=== PATIENT | male | born 1965 | race Caucasian/White ===

== ENCOUNTER 2017-03-24 19:15 | Emergency (ER) | payer BC ==
[2017-03-24 19:23] VITALS: BP 148/86
--- NOTE | 2017-03-24 19:38 | UC ---
Dental HPI - HPI Summary HPI Summary: Pt reports that he was at his dentist this morning for a fractured tooth and was told to worm picker antibiotics for the "infected tooth" Pt went to worm picker antibiotic at pharmacy and it was not sent it. - History of Current Complaint Hx Obtained From: Patient Onset/Duration: Sudden Onset, Lasting Days, Still Present Severity: Mild Aggravating: Heat, Cold, Chewing Related History: Previous Dental Care on Same Tooth, Other - fractured tooth <Camilla Lopez NP - Last Filed: 03/24/17 19:40> <Magda Hairston - Last Filed: 03/24/17 20:05> - History of Current Complaint Chief Complaint: UCDentalProblem Stated Complaint: DENTAL PAIN Time Seen by Provider: 03/24/17 19:23 - Allergies/Home Medications Allergies/Adverse Reactions: Allergies Allergy/AdvReac Type Severity Reaction Status Date / Time Penicillins Allergy Rash And Verified 03/24/17 19:23 Itching Home Medications: Home Medications Fenofibrate 40 mg PO DAILY 03/24/17 [History Confirmed 03/24/17] Lisinopril TAB* [Prinivil TAB 10 MG*] 10 mg PO DAILY 03/24/17 [History Confirmed 03/24/17] metFORMIN* [Glucophage 500 MG TAB *] 750 mg PO DAILY 03/24/17 [History Confirmed 03/24/17] PMH/Surg Hx/FS Hx/Imm Hx Previously Healthy: Yes - Surgical History Surgery Procedure, Year, and Place: bone spur. mcl 10 years - Family History Known Family History: Positive: Hypertension - Social History Occupation: Employed Full-time Lives: With Family Alcohol Use: None Substance Use Type: None Smoking Status (MU): Never Smoked Tobacco Have You Smoked in the Last Year: No <Camilla Lopez NP - Last Filed: 03/24/17 19:40> Review of Systems Constitutional: Negative Skin: Negative Eyes: Negative ENT: Dental Pain - fractured tooth Respiratory: Negative Cardiovascular: Negative Gastrointestinal: Negative Genitourinary: Negative Motor: Negative Neurovascular: Negative Musculoskeletal: Negative Neurological: Negative Psychological: Negative All Other Systems Reviewed And Are Negative: Yes <Camilla Lopez NP - Last Filed: 03/24/17 19:40> Physical Exam Triage Information Reviewed: Yes Appearance: Well-Appearing Vital Signs: Initial Vital Signs Temp 98.3 F 03/24/17 19:19 Pulse 66 03/24/17 19:19 Resp 14 03/24/17 19:19 BP 148/86 03/24/17 19:19 Pulse Ox 98 03/24/17 19:19 Vital Signs Reviewed: Yes Eye Exam: Normal ENT Exam: Normal Dental Exam: Other Dental: Positive: Dental Fracture @ - left premolar Neck exam: Normal Neck: Positive: Supple Respiratory Exam: Other Respiratory: Positive: No respiratory distress Musculoskeletal Exam: Normal Neurological Exam: Normal Psychological Exam: Normal Skin Exam: Normal <Camilla Lopez NP - Last Filed: 03/24/17 19:40> Vital Signs: Initial Vital Signs Temp 98.3 F 03/24/17 19:19 Pulse 66 03/24/17 19:19 Resp 14 03/24/17 19:19 BP 148/86 03/24/17 19:19 Pulse Ox 98 03/24/17 19:19 <Magda Hairston - Last Filed: 03/24/17 20:05> Dental Complaint Course/Dx - Differential Dx/Diagnosis Differential Diagnosis/Dx: Fractured Tooth Provider Diagnoses: fractured tooth <Camilla Lopez NP - Last Filed: 03/24/17 19:40> Discharge <Camilla Lopez NP - Last Filed: 03/24/17 19:40> <Magda Hairston - Last Filed: 03/24/17 20:05> - Discharge Plan Condition: Stable Disposition: HOME Prescriptions: Clindamycin Cap(NF) [Clindamycin Cap 300 mg Cap(NF)] 300 mg PO Q8H #30 cap Patient Education Materials: Acute Dental Trauma (ED) Referrals: Silvia Mahan MD [Medical Doctor] - Attestation Statement User Type: Provider - I was available for consult. This patient was seen by the CHRISTY. The patient was not presented to, seen by, or examined by me. -Ronen <Magda Hairston - Last Filed: 03/24/17 20:05>
== END 2017-03-24 19:43 | disposition home or self-care (01) ==
LOC: UCCORT 19:15
DX: S02.5XXA Fracture of tooth (traumatic), initial encounter for closed fracture (principal); X58.XXXA Exposure to other specified factors, initial encounter; Y93.9 Activity, unspecified; Y92.9 Unspecified place or not applicable; Z88.0 Allergy status to penicillin
CPT/HCPCS: 99212; G0463

== ENCOUNTER 2019-11-20 18:10 | Emergency (ER) | payer BC ==
--- OUTSIDE RECORDS SUMMARY | 2019-11-20 18:30 | XMS REPORT | Continuity of Care Document ---
:1965 External Reference #:[id number] Author Name Infusion Chair 7 (transmitted by agent of provider Gwen Dean) Address [address], [address] [place] [address] Care Team Providers Name Role Phone Zhou Gilliam - Urology Care Team Information Travel Coordinator [phone] Patricio Loredo MD - Family Medicine Care Team Information Travel Coordinator Problems Active Problems Provider Date Localized, primary osteoarthritis Gregory De La Rosa MD, FACS Onset: 2010 Essential hypertension Ingrid Judd M.D. Onset: 03/01/2017 Proteinuria Ingrid Judd M.D. Onset: 03/01/2017 Note: on FAVIOLA Sarcoidosis Ingrid Judd M.D. Onset: 03/01/2017 Hypertriglyceridemia Ingrid Judd M.D. Onset: 03/01/2017 Type 2 diabetes mellitus Ingrid Judd M.D. Onset: 03/01/2017 Noncompliance with treatment Ingrid Judd M.D. Onset: 03/01/2017 Obstructive sleep apnea of adult Ingrid Judd M.D. Onset: 03/01/2017 Splenomegaly Ingrid Judd M.D. Onset: 04/12/2017 History of polyp of colon Gurinder Miller MD Onset: 10/11/2017 Mixed hyperlipidemia Ingrid Judd M.D. Onset: 09/27/2017 Obesity Ingrid Judd M.D. Onset: 09/27/2017 Screening for malignant neoplasm of colon Ingrid Judd M.D. Onset: 2017 Hereditary hemochromatosis Ingrid Judd M.D. Onset: 12/27/2017 Vitamin D deficiency Ingrid Judd M.D. Onset: 12/27/2017 Chronic nonalcoholic liver disease Gurinder Miller MD Onset: 04/04/2018 Benign neoplasm of colon Gurinder Miller MD Onset: 04/04/2018 Diverticular disease of colon Gurinder Miller MD Onset: 04/04/2018 First degree hemorrhoids Gurinder Miller MD Onset: 04/04/2018 Abnormal findings diagnostic imaging of Gurinder Miller MD Onset: 04/04/2018 liver+biliary tract Streptococcal sore throat Krupa Archuleta DO Onset: 11/06/2018 Vitamin B deficiency Krupa Archuleta DO Onset: 02/18/2019 Acute upper respiratory infection, unspecified Krupa Archuleta DO Onset: Social History Type Date Description Comments Sex Unknown Cigarette Use Denies Smokeless Tobacco Never Used Smokeless Tobacco ETOH Use Rarely consumes alcohol Recreational Drug Use Denies Drug Use Tobacco Use Start: Unknown Patient denies history of smoking Smoking Status Reviewed: 09/18/18 Patient denies history of smoking Allergies, Adverse Reactions, Alerts Active Allergies Reaction Severity Comments Date Penicillins 06/15/2009 Pollen 04/15/2010 Medications Active Medications SIG Qnty Indications Ordering Date Provider Levofloxacin take 1 tablet 7tabs Boufal, 05/21/2019 500mg Tablets by mouth every Krupa, DO 24 hours Ergocalciferol 1 cap by mouth 4caps Boufal, 02/18/2019 [id number] Capsules every week Krupa, DO Vascepa 2 caps by caps Patricio Loredo MD 09/24/2018 1gm Capsules mouth twice a day before meals Vitamin D take one 30tabs E55.9 Ingrid Judd, 12/27/2017 1000Unit Tablets tablet by M.D. mouth every day Hydrochlorothiazide Take 1 Tablet 90tabs N20.0 Patricio Loredo MD 09/12/2017 25mg Tablets Daily Metformin HCL Take 2 Tablets 270tabs Patricio Loredo MD 03/29/2017 500mg Tablets Every Morning And 1 Tablet Every Evening Tricor take one 30tabs E78.2 Patricio Loredo MD 03/02/2017 145mg Tablets tablet by mouth every day. Patient need follow up before further refill Lisinopril Take 1 Tablet 90tabs Patricio Loredo MD 30mg Tablets Daily Victoza inject 1.2mg Unknown 18mg/3ML Solution into the skin Pen-Inject daily Medications Administered in Office Medication SIG Qnty Indications Ordering Provider Date Depomedrol 40mg/1cc Gregory De La Rosa MD, 11/11/2010 (methylprednisolone acetate) FACS Injection Immunizations CPT Code Status Date Vaccine Lot # [id number] Given 03/01/2017 Tdap injection [id number] Vital Signs Date Vital Result Comment 09/10/2019 8:36am BP Systolic 119 mmHg BP Diastolic 74 mmHg Body Temperature 98.3 F Heart Rate 65 /min Respiratory Rate 16 /min Weight 281.25 lb Pain Level 0 O2 % BldC Oximetry 95 % 07/23/2019 11:37am BP Systolic 127 mmHg right BP Diastolic 75 mmHg right Body Temperature 98.4 F Heart Rate 72 /min Respiratory Rate 18 /min Weight 283.50 lb Pain Level 0 O2 % BldC Oximetry 96 % Ra Results Test Acquired Date Facility Test Result H/L Range Note Hemoglobin/H 11/12/2019 [facility] Hemoglobin 15.4 gm/dL Normal 12.8-17.0 1 ematocrit [address] [place] [address] [phone] Hematocrit 44.3 % Normal 38.0-48.0 Laboratory test 11/12/2019 [facility] Ferritin 136 ng/mL Normal 26-388 finding [address] [place] [address] [phone] Hemoglobin/Mark 10/08/2019 [facility] Hemoglobin 15.2 gm/dL Normal 12.8-17.0 2 tocrit [address] [place], [place] [address] [phone] Hematocrit 44.2 % Normal 38.0-48.0 Laboratory 10/08/2019 [facility] Ferritin 115 Normal 26-388 test finding [address] ng/mL [place], [place] [id number] [phone] Laboratory 09/10/2019 [facility] Gamma Glutamyl 39 U/L Normal 5-85 test finding [address] Transpeptidase [place], [place] [address] [phone] Afp Tumor Marker,Serum 3.9 ng/mL 0.0-8.3 3 Iron-Tibc-%Sat 09/10/2019 [facility] Serum Iron 65 g/dL Normal 65-[address] [place] [address] [phone] Total Iron Binding Capacity 377 g/dL Normal 250-450 Transferrin %Saturation 17 % Normal 12-57 Laboratory test 09/10/2019 [facility] Ferritin 140 ng/mL Normal 26-[address] [place], [place] [address] [phone] CBC W/Automated 09/10/2019 [facility] White Blood 5.0 K/uL Normal 3.4-10.[address] [place] [address] [phone] Red Blood Count 5.24 M/uL Normal 4.20-5.80 Hemoglobin 15.4 gm/dL Normal 12.8-17.0 Hematocrit 45.3 % Normal 38.0-48.0 Mean Cell Volume 86.5 fl Normal 80.0-96.0 Mean Corpuscular HGB 29.4 pg Normal 27.0-33.0 Mean Corpuscular HGB Conc 34.0 g/dL Normal 31.7-36.0 Platelet Count 169 K/uL Normal 155-360 Red Cell Distri Width SD 40.5 fl Normal 36-51 Red Cell Distri Width %CV 13.2 % Normal 11.6-15.8 Mean Platelet Volume 8.9 fl Normal 6.6-10.6 Neut% 63.2 % Normal 33.0-73.0 Lymph % 25.2 % Normal 20.0-42.0 [place] % 5.8 % Normal 0.0-10.0 Eo% 4.4 % Normal 0.0-6.6 Bas% 1.0 % Normal 0.0-1.1 Immature Grans 0.4 % Normal 0.0-5.0 NRBC % 0.0 /100WBC < 10/ 100 WBC Neut# 3.16 K/uL Normal 1.8-7.0 Lymph # 1.26 K/uL Normal 1.0-4.0 [place] # 0.29 K/uL Normal 0.0-0.8 Eos # 0.22 K/uL Normal 0.0-0.5 Baso # 0.05 K/uL Normal 0.0-0.1 Immature Grans Absolute 0.02 K/uL NRBC # 0.00 K/uL Hemoglobin/Hematocrit 08/20/2019 [facility] Hemoglobin 16.4 Normal 12.8-17.[address] gm/[place] [address] [phone] Hematocrit 47.4 % Normal 38.0-48.0 Laboratory test 07/23/2019 [facility] Ferritin 194 ng/mL Normal 26-388 5 finding [address] [place] [address] [phone] Iron-Tibc-%Sat 07/23/2019 [facility] Serum Iron 61 g/dL Low 65-175 [address] [place] [address] [phone] Total Iron Binding Capacity 388 g/dL Normal 250-450 Transferrin %Saturation 16 % Normal 12-57 Comprehensive Metabolic 07/23/2019 [facility] Glucose 174 mg/dL High 74-[address] [place] [address] [phone] BUN 20 mg/dL High 7-18 Creatinine 1.0 mg/dL Normal 0.6-1.3 Glom Filtration Rate, Estimate >60 mL/min >60 If >60 mL/min >60 6 BUN/Creat 20.0 ratio Sodium 137 mmol/L Normal 136-145 Potassium 4.2 mmol/L Normal 3.5-5.1 Chloride 106 mmol/L Normal 98-107 Carbon Dioxide 28 mmol/L Normal 21-32 Anion Gap 3 mEq/L Low 8-16 Calcium 9.2 mg/dL Normal 8.5-10.1 Total Protein 8.1 g/dL Normal 6.4-8.2 Albumin 4.3 g/dL Normal 3.4-5.0 Globulin 3.8 g/dL Normal 1.9-4.3 Alb/Glob 1.1 ratio Bilirubin,Total 0.4 mg/dL Normal 0.2-1.0 Sgot/Ast 22 U/L Normal 15-37 SGPT/Alt 47 U/L Normal 12-78 Alkaline Phosphatase 64 U/L Normal 45-117 CBC W/Automated 07/23/2019 [facility] White Blood 5.1 K/uL Normal 3.4-10.[address] [place] [address] [phone] Red Blood Count 5.43 M/uL Normal 4.20-5.80 Hemoglobin 16.7 gm/dL Normal 12.8-17.0 Hematocrit 47.2 % Normal 38.0-48.0 Mean Cell Volume 86.9 fl Normal 80.0-96.0 Mean Corpuscular HGB 30.8 pg Normal 27.0-33.0 Mean Corpuscular HGB Conc 35.4 g/dL Normal 31.7-36.0 Platelet Count 163 K/uL Normal 155-360 Red Cell Distri Width SD 42.5 fl Normal 36-51 Red Cell Distri Width %CV 13.7 % Normal 11.6-15.8 Mean Platelet Volume 8.8 fl Normal 6.6-10.6 Neut% 62.0 % Normal 33.0-73.0 Lymph % 26.2 % Normal 20.0-42.0 [place] % 6.5 % Normal 0.0-10.0 Eo% 3.9 % Normal 0.0-6.6 Bas% 1.0 % Normal 0.0-1.1 Immature Grans 0.4 % Normal 0.0-5.0 NRBC % 0.0 /100WBC < 10/ 100 WBC Neut# 3.14 K/uL Normal 1.8-7.0 Lymph # 1.33 K/uL Normal 1.0-4.0 [place] # 0.33 K/uL Normal 0.0-0.8 Eos # 0.20 K/uL Normal 0.0-0.5 Baso # 0.05 K/uL Normal 0.0-0.1 Immature Grans Absolute 0.02 K/uL NRBC # 0.00 K/uL Hemoglobin/Hematocrit 07/02/2019 [facility] Hemoglobin 15.8 Normal 12.8-17.[address] gm/[place] [address] [phone] Hematocrit 45.4 % Normal 38.0-48.0 Hemoglobin/Hematocrit 06/11/2019 [facility] Hemoglobin 15.4 Normal 12.8-17.[address] gm/[place] [address] [phone] Hematocrit 43.9 % Normal 38.0-48.0 Laboratory 05/21/2019 [facility] Afp Tumor 3.8 0.0-8.3 8, 9 test finding [address] Marker,Serum ng/[place] [address] [phone] CBC 05/21/2019 [facility] White Blood 4.8 K/uL Normal 3.4-10.5 W/Automated [address] [place] [address] [phone] Red Blood Count 5.13 M/uL Normal 4.20-5.80 Hemoglobin 15.8 gm/dL Normal 12.8-17.0 Hematocrit 44.2 % Normal 38.0-48.0 Mean Cell Volume 86.2 fl Normal 80.0-96.0 Mean Corpuscular HGB 30.8 pg Normal 27.0-33.0 Mean Corpuscular HGB Conc 35.7 g/dL Normal 31.7-36.0 Platelet Count 166 K/uL Normal 155-360 Red Cell Distri Width SD 41.2 fl Normal 36-51 Red Cell Distri Width %CV 13.2 % Normal 11.6-15.8 Mean Platelet Volume 9.1 fl Normal 6.6-10.6 Neut% 60.1 % Normal 33.0-73.0 Lymph % 26.7 % Normal 20.0-42.0 [place] % 6.6 % Normal 0.0-10.0 Eo% 5.6 % Normal 0.0-6.6 Bas% 0.6 % Normal 0.0-1.1 Immature Grans 0.4 % Normal 0.0-5.0 NRBC % 0.0 /100WBC < 10/ 100 WBC Neut# 2.90 K/uL Normal 1.8-7.0 Lymph # 1.29 K/uL Normal 1.0-4.0 [place] # 0.32 K/uL Normal 0.0-0.8 Eos # 0.27 K/uL Normal 0.0-0.5 Baso # 0.03 K/uL Normal 0.0-0.1 Immature Grans Absolute 0.02 K/uL NRBC # 0.00 K/uL Comprehensive Metabolic 05/21/2019 [facility] Glucose 132 mg/dL High 74-[address] [place] [address] [phone] BUN 16 mg/dL Normal 7-18 Creatinine 1.0 mg/dL Normal 0.6-1.3 Glom Filtration Rate, Estimate >60 mL/min >60 If >60 mL/min >60 10 BUN/Creat 16.0 ratio Sodium 138 mmol/L Normal 136-145 Potassium 3.8 mmol/L Normal 3.5-5.1 Chloride 105 mmol/L Normal 98-107 Carbon Dioxide 27 mmol/L Normal 21-32 Anion Gap 6 mEq/L Low 8-16 Calcium 8.6 mg/dL Normal 8.5-10.1 Total Protein 7.8 g/dL Normal 6.4-8.2 Albumin 4.3 g/dL Normal 3.4-5.0 Globulin 3.5 g/dL Normal 1.9-4.3 Alb/Glob 1.2 ratio Bilirubin,Total 0.5 mg/dL Normal 0.2-1.0 Sgot/Ast 18 U/L Normal 15-37 SGPT/Alt 40 U/L Normal 12-78 Alkaline Phosphatase 56 U/L Normal 45-117 Iron-Tibc-%Sat 05/21/2019 [facility] Serum Iron 70 g/dL Normal 65-175 [address] [place], [place] [address] [phone] Total Iron Binding Capacity 365 g/dL Normal 250-450 Transferrin %Saturation 19 % Normal 12-57 Laboratory test 05/21/2019 [facility] Ferritin 317 ng/mL Normal 26-388 finding [address] [place], [place] [address] [phone] Laboratory test 05/21/2019 [facility] Vitamin 38.4 30.0-100.0 11 finding 134 [facility] D,25-Hydroxy ng/mL [place], [place] [address] [phone] Vitamin B12 448 pg/mL Normal 193-986 12 Folic Acid > 20.0 ng/mL High 3.1-17.5 1 E83.110 E61.1 E55.9 E53.9 2 E83.110 3 [facility] Electrochemiluminescence Immunoassay (ECLIA) Values obtained with different assay methods or kits cannot be used interchangeably. Results cannot be interpreted as absolute evidence of the presence or absence of malignant disease. This test is not interpretable in females. Performed at: - [facility] [id number] [employer]: Aniya Miller MD, Phone: [phone] 4 E83.110 E61.1 5 E83.110 E53.9 E55.9 E61.9 6 Note: Persistent reduction for 3 months or more in an eGFR <60 mL/min/1.73 m2 defines CKD. Patients with eGFR values >/=60 mL/min/1.73 m2 may also have CKD if evidence of persistent proteinuria is present. The original MDRD equation for estimated GFR is not valid for patients less than 18 years of age. Additional information may be found at www.kdoqi.org. 7 E83.110 J06.9 8 E53.9 E83.110 E55.9 E11.65 E53.9 E83.110 E55.9 E11.65 E83.119 E53.9 E83.110 E55.9 E11.65 E83.119 9 [facility] Electrochemiluminescence Immunoassay (ECLIA) Values obtained with different assay methods or kits cannot be used interchangeably. Results cannot be interpreted as absolute evidence of the presence or absence of malignant disease. This test is not interpretable in females. Performed at: - [facility] [address] [id number] [employer]: Aniya Miller MD, Phone: [phone] Note: Persistent reduction for 3 months or more in an eGFR <60 mL/min/1.73 m2 defines CKD. Patients with eGFR values >/=60 mL/min/1.73 m2 may also have CKD if evidence of persistent proteinuria is present. The original MDRD equation for estimated GFR is not valid for patients less than 18 years of age. Additional information may be found at www.kdoqi.org. 11 Vitamin D deficiency has been defined by the [place] [employer] and an Endocrine Society practice guideline as a level of serum 25-OH vitamin D less than 20 ng/mL (1,2). The Endocrine Society went on to further define vitamin D insufficiency as a level between 21 and 29 ng/mL (2). 1. IOM ([place] [employer]). 2010. Dietary reference intakes for calcium and D. [place]: The National Academies Press. 2. Lorrie MF, Martha NC, Letty MATTHEWS, et al. Evaluation, treatment, and prevention of vitamin D deficiency: an Endocrine Society clinical practice guideline. JCEM. 2010; 96(1):5081-30. Performed at: RN - [facility] [address] [id number] [employer]: Aniya Miller MD, Phone: [phone] STAT FOR SHE NOGUEIRA NP Procedures Date Code Description Status 10/24/2017 52542504 Colonoscopy Completed 03/01/2017 525589374 Diabetic Foot Exam Completed 11/28/2013 [id number] Colonoscopy Completed 06/10/2008 [id number] Colonoscopy Completed Medical Devices Description No Information Available Encounters Type Date Location Provider Dx Diagnosis Office Visit 09/10/2019 Oncology Office Kathe E83.110 Hereditary 8:30a DO Krupa hemochromatosis Office Visit 07/23/2019 Infusion Center She Nogueira E83.110 Hereditary 11:30a MOOSE [place] hemochromatosis Office Visit 05/21/2019 Oncology Office Kathe E83.110 Hereditary 8:30a DO Krupa hemochromatosis J06.9 Acute upper respiratory infection, unspecified Assessments Date Code Description Provider 09/10/2019 E83.110 Hereditary hemochromatosis Krupa Archuleta, 07/23/2019 E83.110 Hereditary hemochromatosis She Nogueira, [employer] 05/21/2019 E83.110 Hereditary hemochromatosis Krupa Archuleta, 05/21/2019 J06.9 Acute upper respiratory infection, Krupa Archuleta DO unspecified Plan of Treatment Future Appointment(s):12/10/2019 8:15 am - Oncology Nurse at [id number] 8:30 am - Infusion Chair 7 at Infusion Center Functional Status Description No Information Available Mental Status Description No Information Available Referrals Description No Information Available
[2019-11-20 18:36] VITALS: BP 136/88
--- NOTE | 2019-11-20 18:50 | UC ---
Bite Injury/Animal HPI - HPI Summary HPI Summary: 53-year-old male comes in with a chief complaint of exposure to a tick. Last night while in bed he pulled something off of his stomach near His umbilicus. He discovered that it was an engorged tick. He has no rash no fevers he feels well otherwise. Is not sure how long the tick was there. Is also not sure if he pulled the tick off while it was feeding or if the tick was attached are not. - History of Current Complaint Chief Complaint: UCBiteInjury Stated Complaint: TICK Time Seen by Provider: 11/20/19 18:34 Pain Intensity: 0 - Allergies/Home Medications Allergies/Adverse Reactions: Allergies Allergy/AdvReac Type Severity Reaction Status Date / Time Penicillins Allergy Rash And Verified 11/20/19 18:37 Itching Home Medications: Home Medications Fenofibrate 145 mg PO DAILY 03/24/17 [History Confirmed 11/20/19] Lisinopril TAB* [Prinivil TAB 10 MG*] 30 mg PO DAILY 03/24/17 [History Confirmed 11/20/19] metFORMIN* [Glucophage 500 MG TAB *] 1,500 mg PO DAILY 03/24/17 [History Confirmed 11/20/19] Aspirin 81 mg CHEW TAB* [Aspirin Low Dose TAB*] 81 mg PO DAILY 11/20/19 [ History Confirmed 11/20/19] Cholecalciferol TAB* [Vitamin D TAB*] 1,000 unit PO DAILY 11/20/19 [History Confirmed 11/20/19] DOXYcycline CAP(*) [DOXYcycline 100MG CAP(*)] 200 mg PO ONCE #2 cap 11/20/19 [Rx ] Hydrochlorothiazide TAB* [Hydrodiuril TAB*] 25 mg PO DAILY 11/20/19 [History Confirmed 11/20/19] Liraglutide [Victoza] 18 mg SC 11/20/19 [History] [place]-3 Fatty Acids/Fish Oil [Fish Oil 1,000 mg Softgel] 1 each PO DAILY [History Confirmed 11/20/19] PMH/Surg Hx/FS Hx/Imm Hx Previously Healthy: Yes Endocrine History: Diabetes Cardiovascular History: Hypertension - Surgical History Surgical History: Yes Surgery Procedure, Year, and Place: bone spur. mcl 10 years - Family History Known Family History: Positive: Hypertension - Social History Alcohol Use: None Substance Use Type: None Smoking Status (MU): Never Smoked Tobacco Have You Smoked in the Last Year: No Review of Systems All Other Systems Reviewed And Are Negative: Yes Constitutional: Positive: Negative Skin: Positive: Other - SEE HPI Eyes: Positive: Negative ENT: Positive: Negative Respiratory: Positive: Negative Cardiovascular: Positive: Negative Gastrointestinal: Positive: Negative Motor: Positive: Negative Neurovascular: Positive: Negative Musculoskeletal: Positive: Negative Neurological/Mental Status: Positive: Negative Psychological: Positive: Negative Is Patient Immunocompromised?: No Physical Exam Triage Information Reviewed: Yes Appearance: Well-Appearing, No Pain Distress, Well-Nourished Vital Signs: Initial Vital Signs Temp 97.4 F 11/20/19 18:32 Pulse 88 11/20/19 18:32 Resp 18 11/20/19 18:32 BP 136/88 11/20/19 18:32 Pulse Ox 97 11/20/19 18:32 Vital Signs Reviewed: Yes Eye Exam: Normal Eyes: Positive: Conjunctiva Clear Neck: Positive: Supple Respiratory: Positive: No respiratory distress Musculoskeletal: Positive: Strength Intact, ROM Intact Neurological: Positive: Alert, Muscle Tone Normal Psychological: Positive: Age Appropriate Behavior Skin Exam: Normal - On the abdominal wall next to the umbilicus there is no erythema. Bite Injury Course/Dx - Course Course Of Treatment: Because we are not sure if the tick was attached are not, we'll treat with doxycycline 200 mg. Patient is a reevaluated if he develops any signs of Lyme disease. - Differential Dx/Diagnosis Provider Diagnosis: Tick bite of abdomen Discharge ED - Sign-Out/Discharge Documenting (check all that apply): Patient Departure All imaging exams completed and their final reports reviewed: No Studies - Discharge Plan Condition: Stable Disposition: HOME Prescriptions: DOXYcycline CAP(*) [DOXYcycline 100MG CAP(*)] 200 mg PO ONCE #2 cap Patient Education Materials: Tick Bite (ED) Referrals: Patricio Loredo MD [Primary Care Provider] - Additional Instructions: FOLLOW UP WITH YOUR DOCTOR IF NOT COMPLETELY IMPROVED. GET REEVALUATED IF NOT IMPROVING OR WORSE; RASH, BULLS EYE RASH, YOU FEEL ILL, SYMPTOMS OF LYME DISEASE OR ANY QUESTIONS OR CONCERNS. - Billing Disposition and Condition Condition: STABLE Disposition: Home
== END 2019-11-20 18:55 | disposition home or self-care (01) ==
LOC: UCCORT 18:10
DX: S30.861A Insect bite (nonvenomous) of abdominal wall, initial encounter (principal); W57.XXXA Bitten or stung by nonvenomous insect and other nonvenomous arthropods, initial encounter; Y92.9 Unspecified place or not applicable; E11.9 Type 2 diabetes mellitus without complications; Z79.84 Long term (current) use of oral hypoglycemic drugs; I10 Essential (primary) hypertension; Z79.899 Other long term (current) drug therapy; Z88.0 Allergy status to penicillin
CPT/HCPCS: 99212; G0463

== ENCOUNTER 2024-08-08 08:09 | Observation (INO) ==
[~2024-08-08 08:09] MED LIST: NS 0.45% 1000 ml BAG 1,000 ML IV SCH; Naloxone 0.4 mg VIAL 0.4 mg/ml 1 ml VIAL IV PRN; Ondansetron 4 mg VIAL 2 MG/ML 2 ml VIAL IV PRN
[2024-08-08] MEDS ORDERED: Ondansetron 4 mg VIAL 2 MG/ML 2 ml VIAL ONE (08:14)
[2024-08-08] MEDS ORDERED: Propofol 0 MG/0 ML BTL ONE (08:14)
[2024-08-08] MEDS ORDERED: Dexamethasone IV 4 MG/ML VIAL 1 ml VIAL ONE (08:14)
[2024-08-08] MEDS ORDERED: Tranexamic Acid 1 GM/100ML BAG 2,000 MG/200 ML BAG IV ONE (08:23)
[2024-08-08] MEDS ORDERED: Clindamycin 900 MG/50 **NS BAG 900 MG/50 ML BAG ONE (08:23)
[2024-08-08] MEDS ORDERED: fentaNYL 100 mcg/2 ml 50 MCG/ML VIAL ONE ×4 (08:34→14:23)
[2024-08-08] MEDS ORDERED: ROPIVACAINE 5 MG/ML 30 ML BTL (0.5%) ONE ×2 (08:34→10:11)
[2024-08-08] MEDS ORDERED: Midazolam 5 mg/5 ml VIAL 1 mg/ml 5 ml VIAL (5 mg) ONE (08:34)
[2024-08-08] MEDS: Lactated Ringers 1000 ml BAG 1,000 ML IV SCH ×2 (08:53→16:53)
[2024-08-08 09:07] LABS: Rapid COVID-19 Molecular Undetected (Undetected)
[2024-08-08] MEDS ORDERED: Propofol 10 MG/ML 20 ML BTL ONE ×2 (10:03→13:31)
[2024-08-08] MEDS ORDERED: Lidocaine 2% PF 5 ML VIAL ONE (10:04)
[2024-08-08] MEDS ORDERED: HYDROmorphone 0.5 MG/0.5 ML SYRINGE ONE (11:55)
[2024-08-08] MEDS ORDERED: Glycopyrrolate IV 0.2 MG/ML 1 ML VIAL ONE (11:59)
[2024-08-08] MEDS ORDERED: Calcium Carb (TUMS) 500 mg CHEW TAB PO PRN (13:58)
[2024-08-08] MEDS ORDERED: Lactulose 30 ml UDC PO PRN (13:58)
[2024-08-08] MEDS ORDERED: Magnesium Hydroxide LIQ 30 ML UDC PO PRN (13:58)
[2024-08-08] MEDS ORDERED: Ondansetron 4 mg VIAL 2 MG/ML 2 ml VIAL IV PRN (13:58)
[2024-08-08] MEDS ORDERED: Ondansetron ODT 4 mg TAB 4 MG TAB PO PRN (13:58)
[2024-08-08] MEDS ORDERED: Morphine 2 MG/ML SYRINGE IV PRN (13:58)
[2024-08-08] MEDS: fentaNYL 100 mcg/2 ml 50 MCG/ML VIAL IV PRN (14:24)
[2024-08-08] MEDS: Scopolamine 1 mg/72hr PATCH TRANSDERM ONE (17:00)
[2024-08-08] MEDS: Acetaminophen IV 1 GM/100ML 1,000 MG/100 ML BAG IV ONE (17:00)
[2024-08-08] MEDS: Buffered Lidocaine 1% SYRIN 1 ml INTRADERM ONE (17:00)
[2024-08-08] MEDS: Magnesium Hydroxide LIQ 30 ML UDC PO SCH (21:45)
[2024-08-08] MEDS: Clindamycin 900 MG/D5W BAG 900 MG/50 ML BAG IVPB SCH (21:45)
[2024-08-09 06:15] LABS: Hematocrit 39.1 % (38-53); Hemoglobin 14.2 g/dL (13.2-16.3); Platelet Count 156 10^3/uL (150-450)
[2024-08-09 06:49] LABS: Calcium 8.5 mg/dL (8.6-10.3); Creatinine, Serum 1.19 mg/dL (0.67-1.17); Potassium 4.4 mmol/L (3.5-5.0); eGFR CKD-EPI 71.2 (>60)
[2024-08-09] MEDS: Vitamin THERAPEUTIC TAB PO SCH (08:50)
[2024-08-09 10:43] VITALS: BP 111/71
[2024-08-09] MEDS: Insulin GLARGINE 100 un/ml 10 ml VIAL SUBCUT SCH (11:59)
== END 2024-08-09 14:00 | disposition home or self-care (01) ==
LOC: SSU 08:09 → OR 08:09
PROVIDERS: ADMIT Orthopaedic Surgery Adult Reconstructive Orthopaedic Surgery; ATTEND Orthopaedic Surgery Adult Reconstructive Orthopaedic Surgery